=== PATIENT | female | born 1995 | race Caucasian/White ===

== ENCOUNTER 2018-12-26 17:42 | Emergency (ER) | payer OTHER ==
[~2018-12-26] VITALS: Ht 157.5 cm; Wt 68.0 kg
[2018-12-26] MEDS ORDERED: TRESIBA100 UNIT/1 SUBQ (17:57)
[2018-12-26] MEDS ORDERED: HUMALOG100 UNIT/1 SUBQ (17:57)
[2018-12-26] MEDS ORDERED: COZAAR 25 MG TA25 M1 PO (17:58)
[2018-12-26] MEDS ORDERED: MELODETTA 24 F1 EACH PO (17:58)
[2018-12-26 18:53] LABS: URINE BILIRUBIN NEGATIVE (Negative); URINE BLOOD NEGATIVE (Negative); URINE CLARITY CLEAR; URINE COLOR YELLOW; URINE GLUCOSE-RANDOM NEGATIVE (Negative); URINE KETONES 2+ (Negative); URINE LEUKOCYTES-REFLEX NEGATIVE (Negative); URINE NITRITE-REFLEX NEGATIVE (Negative); URINE PROTEIN 1+ (Negative); URINE UROBILINOGEN 0.2 E.U./dl (0.2-1.0)
[2018-12-26 19:05] LABS: BACTERIA-REFLEX 1-9 Few /HPF (None Seen); CASTS None Seen /LPF (None Seen); CRYSTALS None Seen /LPF (None Seen); SQUAMOUS 0-3 Few /LPF (0-3); URINE RBC 0-2 Rare /HPF (0-2); URINE WBC-REFLEX 0-5 Rare /HPF (0-5)
[2018-12-26 19:14] LABS: NUCLEATED RBCS 0 /100WBC; RBC 4.51 mil/uL (4.20-5.00)
[2018-12-26 19:17] LABS: HEMATOCRIT 40.2 % (37.0-47.0); HEMOGLOBIN 13.3 gm/dL (12.0-15.0); MCH 29.6 pg (26.0-34.0); MCHC 33.2 g/dL (28.0-37.0); MCV 89.1 fL (80.0-100.0); MPV 9.5 fl. (7.2-11.1); PLATELET COUNT* 233 thou/uL (150-400); RDW-CV 12.6 % (10.5-14.5)
[2018-12-26 19:27] LABS: CALCIUM 8.3 mg/dL (8.5-10.1); CREATININE 0.6 mg/dL (0.6-1.3); POTASSIUM 3.7 mmol/L (3.5-5.1)
[2018-12-26 19:31] LABS: ALBUMIN 3.2 g/dL (3.4-5.0); TOTAL BILIRUBIN 0.5 mg/dL (<0.1-1.0); TOTAL PROTEIN 6.9 g/dL (6.4-8.2)
[2018-12-26 19:38] LABS: ABSOLUTE LYMPHOCYTES 0.7 thou/uL (0.8-5.3); ABSOLUTE MONOCYTES 0.2 thou/uL (0.0-1.2); PLATELET ESTIMATE ADEQUATE
[2018-12-26] MEDS ORDERED: ONDANSETRON HCL4 M2 PO (20:28)
[2018-12-26 20:43] VITALS: BP 104/58
== END 2018-12-26 20:43 | disposition home or self-care (01) ==
LOC: M.ERS 17:42
PROVIDERS: Nurse Practitioner Family
DX: N28.1 Cyst of kidney, acquired (principal); E10.649 Type 1 diabetes mellitus with hypoglycemia without coma; R11.2 Nausea with vomiting, unspecified